=== PATIENT | female | born 1945 | race Caucasian/White ===

== ENCOUNTER 2017-11-03 08:49 | Emergency (ER) | payer MEDICARE, BC ==
[~2017-11-03] VITALS: Ht 154.9 cm; Wt 81.7 kg
[~2017-11-03 08:49] MED LIST: ASA5UEC PO; ASPIR 8181 MG PO; CIPRO500 MG PO; FOLIC ACID1 MG PO; GLUCOPHAGE XR500 MG PO; GLUCOTROL5 MG PO; LIPITOR40 MG PO; MELATONIN 5 MG1 EAC1 PO; METFORMIN HCL500 MG PO; MINOCIN100 MG PO; PLAVIX 75 MG TA75 M1 PO; PRILOSEC 20 MG20 MG PO; TYLENOL325 MG PO
[2017-11-03 08:58] VITALS: BP 183/67
[2017-11-03] MEDS ORDERED: KLONOPIN1 MG PO (09:07)
[2017-11-03] MEDS ORDERED: NORVASC5 MG PO (09:08)
[2017-11-03] MEDS ORDERED: LYRICA 50 MG50 MG PO (09:08)
[2017-11-03] MEDS ORDERED: UNICOMPLEX M TA1 TA1 PO (09:08)
[2017-11-03] MEDS ORDERED: LISINOPRIL20 MG PO (09:08)
[2017-11-03] MEDS ORDERED: LIORESAL 10 MG10 MG PO (09:08)
[2017-11-03] MEDS ORDERED: B12INJ IM (09:08)
[2017-11-03] MEDS ORDERED: ZANTAC 150MG T150 MG PO (09:08)
[2017-11-03] MEDS ORDERED: BACTRIM DS TAB1 EACH PO (09:15)
[2017-11-03] MEDS ORDERED: KEFLEX500 M1 PO (09:15)
== END 2017-11-03 09:34 | disposition home or self-care (01) ==
LOC: M.ERS 08:49
DX: L03.011 Cellulitis of right finger (principal); K21.9 Gastro-esophageal reflux disease without esophagitis; E78.00 Pure hypercholesterolemia, unspecified; E11.9 Type 2 diabetes mellitus without complications; Z90.49 Acquired absence of other specified parts of digestive tract; Z86.73 Personal history of transient ischemic attack (TIA), and cerebral infarction without residual deficits

== ENCOUNTER → 2018-12-15 | Outpatient (CLI) | payer MEDICARE, BC ==
[~2018-12-15] MED LIST changes: +B12INJ IM; +BACTRIM DS TAB1 EACH PO; +KEFLEX500 M1 PO; +KLONOPIN1 MG PO; +LIORESAL 10 MG10 MG PO; +LISINOPRIL20 MG PO; +LYRICA 50 MG50 MG PO; +NORVASC5 MG PO; +UNICOMPLEX M TA1 TA1 PO; +ZANTAC 150MG T150 MG PO
== END ==
LOC: M.RAD 11:49
DX: M19.011 Primary osteoarthritis, right shoulder (principal); M16.11 Unilateral primary osteoarthritis, right hip; M25.751 Osteophyte, right hip; I87.8 Other specified disorders of veins; I70.8 Atherosclerosis of other arteries

== ENCOUNTER → 2018-12-16 | Outpatient (CLI) | payer MEDICARE, BC | LOC: M.MRI 09:00 | DX: R90.82 White matter disease, unspecified (principal); M25.512 Pain in left shoulder; Z86.73 Personal history of transient ischemic attack (TIA), and cerebral infarction without residual deficits ==

== ENCOUNTER → 2018-12-19 | Outpatient (CLI) | payer MEDICARE, BC | LOC: M.MRI 10:38 | DX: M48.061 Spinal stenosis, lumbar region without neurogenic claudication (principal); M89.38 Hypertrophy of bone, other site; M12.88 Other specific arthropathies, not elsewhere classified, other specified site ==

== ENCOUNTER 2021-07-26 17:39 | Emergency (ER) | payer MEDICARE, BC ==
[~2021-07-26] VITALS: Ht 152.4 cm; Wt 77.1 kg
[2021-07-26] MEDS ORDERED: RAYOS5 MG PO (17:54)
[2021-07-26 18:34] LABS: ABSOLUTE BASOPHILS 0.1 thou/uL (0.0-0.2); ABSOLUTE EOSINOPHILS 0.1 thou/uL (0.0-0.7); ABSOLUTE LYMPHOCYTES 2.9 thou/uL (0.8-5.3); ABSOLUTE MONOCYTES 0.5 thou/uL (0.0-1.2); ABSOLUTE NEUTROPHILS 4.9 thou/uL (1.6-8.1); BASOPHILS 0.8 %; EOSINOPHILS 1.6 %; HEMATOCRIT 36.5 % (37.0-47.0); HEMOGLOBIN 12.1 gm/dL (12.0-15.0); LYMPHOCYTES 33.9 %; MCH 31.1 pg (26.0-34.0); MCV 94.2 fL (80.0-100.0); MONOCYTES 6.3 %; MPV 7.9 fl. (7.2-11.1); NUCLEATED RBCS 0 /100WBC; PLATELET COUNT* 269 thou/uL (150-400); POLYS 57.4 %; RBC 3.88 mil/uL (4.20-5.00); RDW-CV 16.6 % (10.5-14.5); WBC 8.5 thou/uL (4.0-11.0)
[2021-07-26 18:37] LABS: CALCIUM 9.4 mg/dL (8.5-10.1); CREATININE 1.1 mg/dL (0.6-1.3); POTASSIUM 4.3 mmol/L (3.5-5.1)
[2021-07-26 18:41] LABS: ALBUMIN 3.7 g/dL (3.4-5.0); TOTAL BILIRUBIN 0.3 mg/dL (<0.1-1.0); TOTAL PROTEIN 7.2 g/dL (6.4-8.2)
[2021-07-26 18:47] LABS: APTT 23.4 Seconds (25.0-31.3); PROTIME 10.2 Seconds (9.20-11.50)
[2021-07-26] MEDS ORDERED: PREDNISONE 10 M10 MG PO (19:30)
[2021-07-26] MEDS ORDERED: MECLIZINE HCL25 M1 PO (19:31)
[2021-07-26 19:48] VITALS: BP 120/44
--- NOTE | 2021-07-27 12:45 | EKG ---
[place] [address] ELECTROCARDIOGRAM REPORT Name: JOSEPHINE REA Room: [facility]#: [id number] Admission: 07/26/21 Attend Phys: Discharge: 07/26/21 Date of : 47 Date of Service: 07/26/211749 Report #: [id number] THIS REPORT FOR: //name// [facility] ED Test Date: 2021-07-26 Test Time: 17:50:13 Pat Name: JOSEPHINE REA Department: Room: Gender: Client Account Manager: : [id number] Requested By: Liudmila Rogel Order Number: [id number] MD: Amari Frausto Measurements Intervals [place] Rate: 79 P: 46 OH: 117 QRS: 47 QRSD: 89 T: 62 QT: 346 QTc: 397 Interpretive Statements Sinus rhythm Borderline short [place] interval Compared to ECG 11/08/2014 17:48:31 Myocardial infarct finding no longer present Electronically Signed On 07-27-2021 12:45:44 [employer] by Amari Frausto [email or web address] <ELECTRONICALLY SIGNED> By: Amari Frausto MD, [facility] 07/27/21 1245 1750 1750 Amari Frausto MD, [facility] /EPI
== END 2021-07-26 19:50 | disposition home or self-care (01) ==
LOC: M.ERS 17:39
PROVIDERS: Student in an Organized Health Care Education/Training Program
DX: R42 Dizziness and giddiness (principal); R20.2 Paresthesia of skin; H93.13 Tinnitus, bilateral; K21.9 Gastro-esophageal reflux disease without esophagitis; E78.00 Pure hypercholesterolemia, unspecified; E11.9 Type 2 diabetes mellitus without complications; Z86.73 Personal history of transient ischemic attack (TIA), and cerebral infarction without residual deficits; Z90.49 Acquired absence of other specified parts of digestive tract; Z79.899 Other long term (current) drug therapy